=== PATIENT | male | born 1940 | race African-American/Black ===

== ENCOUNTER 2021-09-18 16:32 | Emergency (ER) | payer OTHER ==
[~2021-09-18] VITALS: Ht 170.2 cm; Wt 83.4 kg
--- NOTE | ~2021-09-18 | EMS ---
[address] [address] EMS Patient Care Report Name: JOSE WIGGINS Room #: [facility]#: [id number] Admission: 09/18/21 Attend Phys: Discharge: Date of : 44 Report #: [id number] THIS REPORT FOR: //name// Report Transmitted: 09/18/2021 16:15 EMS Care Summary [place], [place]/[facility] Incident [id number] @ 09/18/2021 15:57 Incident Location [address] [place] [address] Patient JOSE WIGGINS Male, 81 Years 1940 Patient Address [address] [place] [id number] Patient History Dementia,Kidney/Renal Failure,Stroke/CVA, Patient Allergies No known allergies, Patient Medications Lisinopril, ASA, Tramadol, Gabapentin, Chief Complaint hypotension Disposition Transported No Lights/[place] Dispatch Reason Unconscious/Fainting Transported To [facility] Narrative Arrived to find pt in wheelchair in common area. NH staff stated pt is normally alert but does have dementia. Pt is lethargic which started 30 minutes ago. Pt is hypotensive and had a low SPo2 so NH staff placed him on a NC. Pt states his butt hurts but has no other complaints. Pt does appear lethargic. Pt lifted onto cot and placed in trandelenburg position. Pt secured to cot with cot [address] [address] EMS Patient Care Report Name: JOSE WIGGINS Room #: [facility]#: [id number] Admission: 09/18/21 Attend Phys: Discharge: Date of : 44 Report #: [id number] straps and placed on monitor. Staff stated they did not administer him his pain medication due to his lethargy. Pt placed in back of unit and placed in surgical mask. Pt Administered fluid bolus to help with his hypotension. Pt transported without incident. Care to RN, rm 7. Initial Vitals @PTABP: 73/53, @16:13P: 123,BP: 75/48,SpO2: 96, @16:25P: 90,BP: 90/47,CO: 1,SpO2: 97, @16:22P: 86,BP: 78/46,CO: 2,SpO2: 98, @16:10P: 82,SpO2: 100, @16:10P: 102,R: 16,BP: 103/60,Pain: 0/10,GCS: 14,Glucose: 103,SpO2: 100,Revised Trauma: 12, Assessments @16:07MENTAL:Confused,SKIN:HEENT:Eyes: Left Pupil: 3-mm,Eyes: Right Pupil: 3-mm,Head/Face: No Abnormalities,Neck/Airway: No Abnormalities,LUNG SOUNDS:General: No Abnormalities,Left Upper: No Abnormalities,Right Upper: No Abnormalities,Left Lower: No Abnormalities,Right Lower: No Abnormalities,ABDOMEN:General: No Abnormalities,Left Upper: No Abnormalities,Right Upper: No Abnormalities,Left Lower: No Abnormalities,Right Lower: No Abnormalities,PELVIS//GI:No Abnormalities,EXTREMITIES:Left Arm: Weakness,Right Arm: No Abnormalities,Left Leg: No Abnormalities,Right Leg: No Abnormalities,PULSE:NEURO:No Abnormalities, Impression Hypotension Procedures @16:07 ALS Assessment Response: UnchangedSucceeded @16:18 IV Therapy - Saline Lock 10cc (20 ga) Site: Antecubital-Left Response: UnchangedSucceeded @PTAOxygen FlowRate: 4 Device: Nasal Cannula (NC) Succeeded @16:15 IV Therapy - Saline Lock 0cc (20 ga) Site: Antecubital-Left Response: UnchangedFailed @16:20 IV Bolus - Normal Saline (.9% NaCl) 500cc (20 ga) Site: Antecubital-Left Response: ImprovedSucceeded @16:10 3-Lead ECG Response: UnchangedSucceeded Timeline [employer],Oxygen FlowRate: 4 Device: Nasal Cannula (NC) Succeeded, [employer],BP: 73/53 M,PULSE: ,RR: R,SPO2: Ox,ETCO2: ,BG: ,PAIN: ,GCS: , 15:56,Call Received 15:56,Dispatch Notified 15:57,Dispatched [facility] [address] [place] [address] EMS Patient Care Report Name: JOSE WIGGINS Room #: [facility] Lee#: [id number] Admission: 09/18/21 Attend Phys: Discharge: Date of : 44 Report #: [id number] 15:58,En Route 16:03,On Scene 16:06,At Patient 16:07,ALS Assessment,Response: UnchangedSucceeded, 16:10,3-Lead ECG,Response: UnchangedSucceeded, 16:10,BP: 103/60 M,PULSE: 102,RR: 16 R,SPO2: 100 Ox,ETCO2: ,B,PAIN: 0,GCS: 14, 16:10,BP: / M,PULSE: 82,RR: R,SPO2: 100 Ox,ETCO2: ,BG: ,PAIN: ,GCS: , 16:13,BP: 75/48 M,PULSE: 123,RR: R,SPO2: 96 Ox,ETCO2: ,BG: ,PAIN: ,GCS: , 16:15,IV Therapy - Saline Lock 0cc 20 ga Site: Antecubital-Left,Response: UnchangedFailed, 16:18,IV Therapy - Saline Lock 10cc 20 ga Site: Antecubital-Left,Response: UnchangedSucceeded, 16:20,IV Bolus - Normal Saline (.9% NaCl) 500cc 20 ga Site: Antecubital-Left,Response: ImprovedSucceeded, 16:22,BP: 78/46 M,PULSE: 86,RR: R,SPO2: 98 Ox,ETCO2: ,BG: ,PAIN: ,GCS: , 16:22,Depart Scene 16:25,BP: 90/47 M,PULSE: 90,RR: R,SPO2: 97 Ox,ETCO2: ,BG: ,PAIN: ,GCS: , 16:30,At Destination 16:54,Call Closed Disclaimer v1.1 Copyright 2020 [employer] This EMS Care Summary contains data elements from the applicable legal record (which may be displayed differently). It is designed to provide pertinent information for the following purposes: continuity of care, clinical quality, and state data reporting. The complete legal record is available to ED staff and administrators of the receiving hospital in [employer] Patient Tracker. All data is provided "as is."
[~2021-09-18 16:32] MED LIST: ASPIR 8181 MG PO; ATIVAN0.5 MG PO; GABAPENTIN 100100 MG PO; LISINOPRIL10 MG PO; PRILOSEC20 MG; REMERON15 MG PO; TERAZOSIN HCL10 MG; TRAMADOL 50 MG50 MG PO; TRAZODONE HCL50 MG PO; ZOCOR 10 MG TAB10 MG PO
[2021-09-18 16:58] LABS: ABSOLUTE NEUTROPHILS 4.2 thou/uL (1.4-8.2); BASOPHILS 0.6 % (0.0-2.0); EOSINOPHILS 1.9 % (0.0-3.0); HEMATOCRIT 40.8 % (42.0-52.0); HEMOGLOBIN 12.9 gm/dL (14.0-18.0); LYMPHOCYTES 19.1 % (24.0-44.0); MCH 28.3 pg (26.0-34.0); MCHC 31.7 g/dL (28.0-37.0); MCV 89.4 fL (80.0-100.0); MONOCYTES 10.9 % (1.0-8.0); PLATELET COUNT 250 thou/uL (150-400); POLYS 67.5 % (36.0-66.0); RBC 4.57 mil/uL (4.50-6.00); RDW 16.6 % (10.5-14.5); WBC 6.3 thou/uL (4.0-11.0)
[2021-09-18 17:17] LABS: CALCIUM 8.6 mg/dL (8.5-10.1); CREATININE 1.8 mg/dL (0.7-1.3); POTASSIUM 4.3 mmol/L (3.5-5.1)
[2021-09-18 17:27] LABS: ALBUMIN 2.7 g/dL (3.4-5.0); TOTAL BILIRUBIN 0.2 mg/dL (0.2-1.0); TOTAL PROTEIN 6.9 g/dL (6.4-8.2)
[2021-09-18 19:01] LABS: URINE BILIRUBIN NEGATIVE (Negative); URINE BLOOD NEGATIVE (Negative); URINE CLARITY CLEAR; URINE COLOR YELLOW; URINE GLUCOSE-RANDOM* NEGATIVE (Negative); URINE KETONES NEGATIVE (Negative); URINE LEUKOCYTES-REFLEX NEGATIVE (Negative); URINE NITRITE-REFLEX NEGATIVE (Negative); URINE PROTEIN (DIPSTICK) NEGATIVE (Negative); URINE SPECIFIC GRAVITY 1.015 (1.005-1.035)
[2021-09-18 19:19] LABS: AMP/METHAMP Negative (Negative); BARBITURATES Negative (Negative); BENZODIAZEPINES Negative (Negative); COCAINE Negative (Negative); METHADONE Negative (Negative); OPIATES Negative (Negative); PCP Negative (Negative)
[2021-09-18 22:31] VITALS: BP 108/72
--- NOTE | 2021-09-19 07:08 | EKG ---
[address] [address] ELECTROCARDIOGRAM REPORT Name: JOSE WIGGINS Room #: [facility]#: [id number] Admission: 09/18/21 Attend Phys: Discharge: 09/18/21 Date of : 44 Report #: [id number] [facility] ED Test Date: 2021-09-18 Test Time: 18:46:41 Pat Name: JOSE WIGGINS Department: Room: Gender: [employer]: mayela : 1940 Requested By: Diogo Cifuentes Order Number: [id number] MD: Elpidio Shirley Measurements Intervals [place] Rate: 84 P: 73 MD: 171 QRS: -6 QRSD: 88 T: 25 QT: 385 QTc: 456 Interpretive Statements Sinus rhythm No previous ECG available for comparison Electronically Signed On 09-19-2021 7:07:49 CDT by Elpidio Shirley [email or web address] <ELECTRONICALLY SIGNED> By: Elpidio Shirley MD, [facility] 09/19/21 0707 1846 1846 Elpidio Shirley MD, FACC /EPI
== END 2021-09-18 22:32 | disposition home or self-care (01) ==
LOC: ER 16:32
PROVIDERS: Nurse Practitioner
DX: R53.1 Weakness (principal); F03.90 Unspecified dementia, unspecified severity, without behavioral disturbance, psychotic disturbance, mood disturbance, and anxiety; I10 Essential (primary) hypertension; K21.9 Gastro-esophageal reflux disease without esophagitis; F32.9 Major depressive disorder, single episode, unspecified; E78.5 Hyperlipidemia, unspecified; Z79.82 Long term (current) use of aspirin; Z79.899 Other long term (current) drug therapy

== ENCOUNTER 2022-01-27 09:19 | Inpatient (IN) | payer OTHER ==
[~2022-01-27] VITALS: Ht 172.7 cm; Wt 68.0 kg
--- NOTE | ~2022-01-27 | O ---
[facility] [place] [address] OPERATIVE REPORT Name: JOSE WIGGINS Room #: 448-P ADM IN M.R.#: [id number] Admission: 01/27/22 Attend Phys: Rudy Angel MD Discharge: Date of : 44 Report #: [id number] THIS REPORT FOR: cc: Cuate Gonzalez MD, Srinath MD Patterson,Harris Ulloa MD ~ DATE OF SERVICE: 01/28/2022 PREOPERATIVE DIAGNOSIS: Incarcerated right inguinal hernia. POSTOPERATIVE DIAGNOSIS: Incarcerated right inguinal hernia. OPERATION: Repair of incarcerated right inguinal hernia with mesh. SURGEON: Harris Cárdenas. ANESTHESIA: General. ESTIMATED BLOOD LOSS: Minimal. SPECIMENS: None. DESCRIPTION OF PROCEDURE: After informed consent was obtained, out of medical necessity, the patient was brought to the operating room. SCDs were placed and working, preoperative antibiotics were administered and general anesthesia was induced. The abdomen was prepped and draped in the usual sterile fashion. An 8 cm incision was made and 1 cm above the right inguinal external ring. Cautery dissection was made down through the subcutaneous fat down to the aponeurosis of the external oblique, which was incised along the length of its fibers. Self-retaining retractor was placed. Cord structures were identified and protected. He had a direct inguinal hernia. This was all carefully dissected around. This was the corresponding bladder seen on CT. This was placed back into its anatomic position as much as possible. I then performed a tension-free mesh repair. Prolene mesh was brought into the field. It was cut to fit the area. It was then sutured to the shelving edge of the inguinal ligament with interrupted 2-0 Prolene sutures. Interrupted 2-0 Prolene sutures were also used to suture it to the conjoined area. The tails were tucked around the spermatic cord. It was then placed back behind the aponeurosis. The aponeurosis was reapproximated with running 2-0 Vicryl suture. It is important to note that the suture of the mesh was started first anchoring it to the pubic tubercle. The Willis's fascia was reapproximated with interrupted 3-0 Vicryl. Skin was closed with 4-0 Monocryl. Incision was dressed with Dermabond. [address] [address] OPERATIVE REPORT Name: JOSE WIGGINS Room #: 448-P [facility] IN .R.#: [id number] Admission: 01/27/22 Attend Phys: Rudy Angel MD Discharge: Date of : 44 Report #: [id number] COMPLICATIONS: None. DISPOSITION: The patient was taken to the recovery in satisfactory condition. By: 1138 [id number] Harris Cárdenas MD /nt
[2022-01-27 09:21] VITALS: BP 134/77
[2022-01-27] MEDS ORDERED: CLARITIN10 M3 PO (09:29)
[2022-01-27] MEDS ORDERED: VITAMIN D310 MC3 PO (09:29)
[2022-01-27] MEDS ORDERED: GEMTESA75 MG PO (09:30)
[2022-01-27] MEDS ORDERED: FLOMAX0.4 MG PO (09:30)
[2022-01-27] MEDS ORDERED: ESCITALOPRA5 MG/5 ML PO (09:30)
[2022-01-27] MEDS ORDERED: PROSCAR 5MG TABL5 M1 PO (09:30)
[2022-01-27] MEDS ORDERED: NAMENDA XR1 EACH PO (09:31)
[2022-01-27] MEDS ORDERED: MELATONIN5 MG SUBLING (09:31)
[2022-01-27 09:52] LABS: ABSOLUTE NEUTROPHILS 3.7 thou/uL (1.4-8.2); BASOPHILS 0.4 % (0.0-2.0); EOSINOPHILS 2.2 % (0.0-3.0); HEMATOCRIT 36.7 % (42.0-52.0); HEMOGLOBIN 12.3 gm/dL (14.0-18.0); LYMPHOCYTES 16.7 % (24.0-44.0); MCH 29.8 pg (26.0-34.0); MCHC 33.6 g/dL (28.0-37.0); MCV 88.8 fL (80.0-100.0); PLATELET COUNT 235 thou/uL (150-400); POLYS 65.7 % (36.0-66.0); RBC 4.13 mil/uL (4.50-6.00); RDW 15.6 % (10.5-14.5); WBC 5.7 thou/uL (4.0-11.0)
[2022-01-27 10:00] LABS: URINE BLOOD 3+ (Negative); URINE COLOR YELLOW; URINE GLUCOSE-RANDOM* NEGATIVE (Negative); URINE KETONES NEGATIVE (Negative); URINE NITRITE-REFLEX NEGATIVE (Negative); URINE PROTEIN (DIPSTICK) 3+ (Negative); URINE SPECIFIC GRAVITY >= 1.030 (1.005-1.035)
[2022-01-27 10:01] LABS: CALCIUM 9.1 mg/dL (8.5-10.1); POTASSIUM 3.5 mmol/L (3.5-5.1)
[2022-01-27 10:07] LABS: ALBUMIN 2.5 g/dL (3.4-5.0); TOTAL BILIRUBIN 0.2 mg/dL (0.2-1.0); TOTAL PROTEIN 7.2 g/dL (6.4-8.2)
[2022-01-27 10:09] LABS: URINE CLARITY CLOUDY; URINE LEUKOCYTES-REFLEX 1+ (Negative)
[2022-01-27 10:10] LABS: ICTOTEST (BILI CONFIRMATORY) Negative (Negative); URINE BILIRUBIN NEGATIVE (Negative)
[2022-01-27 10:13] LABS: CASTS None Seen /LPF (None Seen); MUCUS 4-6 Moderate strn/LPF (None Seen); SQUAMOUS 4-10 Moderate /LPF (0-3)
[2022-01-27 10:14] LABS: BACTERIA-REFLEX None Seen /HPF (None Seen); CRYSTALS None Seen /LPF (None Seen); URINE RBC >20 Many /HPF (NONE SEEN)
[2022-01-27 11:45] VITALS: BP 120/66
[2022-01-27 12:38] VITALS: BP 112/49
[2022-01-27 13:19] VITALS: BP 142/72
--- NOTE | 2022-01-27 14:21 | NUR ---
ARRIVED TO 4S FROM ED FOR ABD HERNIA. FROM [facility]. A/O X 2 SELF AND SITUATION, RAMA AIR, BEDBOUND, INCONT B/B, LARGE BM, FLACCID LEFT ARM AND LEG PAST CVA, LEFT FOREARM PIV, ABD PAIN, NPO AFTER MIDNIGHT FOR SURGERY TOMORROW.
[2022-01-27 20:44] VITALS: BP 162/87
[2022-01-28] VITALS (8 sets, daily range): BP systolic 110–171; BP diastolic 60–91
--- NOTE | 2022-01-28 05:24 | NUR ---
Pt. rested quietly at intervals during the night when checked on during frequent rounds. He was moaning outloud and c/o testicle pain. Iv pain meds given (see emar) with some relief noted. Bed alarm is on.
[2022-01-28 06:48] LABS: HEMATOCRIT 33.1 % (42.0-52.0); HEMOGLOBIN 11.1 gm/dL (14.0-18.0); MCH 29.9 pg (26.0-34.0); MCHC 33.4 g/dL (28.0-37.0); MCV 89.6 fL (80.0-100.0); RBC 3.7 mil/uL (4.50-6.00); RDW 15.6 % (10.5-14.5); WBC 4.2 thou/uL (4.0-11.0)
[2022-01-28 07:08] LABS: CALCIUM 8.6 mg/dL (8.5-10.1); POTASSIUM 3.7 mmol/L (3.5-5.1)
--- NOTE | 2022-01-28 09:57 | EKG ---
[address] [place] [address] ELECTROCARDIOGRAM REPORT Name: JOSE WIGGINS Room #: 448- ADM IN M.R.#: [id number] Admission: 01/27/22 Attend Phys: Rudy Angel MD Discharge: Date of : 44 Report #: [id number] [facility] ED Test Date: 2022-01-27 Test Time: 09:25:40 Pat Name: JOSE WIGGINS Department: Room: [facility] Gender: M Shot Man: BARRETT : 1940 Requested By: Edward Mejia Order Number: [id number] MD: Frank Fowler Measurements Intervals [place] Rate: 99 P: 48 ID: 164 QRS: -13 QRSD: 93 T: 31 QT: 367 QTc: 471 Interpretive Statements Sinus rhythm Nonspecific ST segment abnormalities Compared to ECG 09/18/2021 18:46:41 No significant change Electronically Signed On 01-28-2022 9:56:46 [employer] ASSIST[employer] by Frank Fowler [email or web address] <ELECTRONICALLY SIGNED> By: Frank Fowler MD 01/28/22 0956 09 Frank Fowler MD /[place]
--- NOTE | 2022-01-28 18:51 | NUR ---
Patient is alert and oriented to person, pain med given prn, had surgery today. Call light within reach, hourly round, will continous monitoring.
[2022-01-29 01:47] VITALS: BP 105/58
[2022-01-29 04:55] VITALS: BP 104/57
--- NOTE | 2022-01-29 06:50 | NUR ---
ALERT AND AWAKE. MILDLY APHESIC. TURN Q 2 HOURS. INCONTINENT OF URINE NOTED. RIGHT GROIN PAIN TREATED WITH PRN PO PAIN MED. HARD TO SWALLOW PAIN PILLS. ADMINSTERED CRUSHED WITH PUDDING. UNABLE TO GET URINE SAMPLE. PT REFUSED CONDUM CATH AND URINAL.
[2022-01-29 09:11] VITALS: BP 118/64
--- NOTE | 2022-01-29 13:22 | NUR ---
ASSUMED CARE OVER PATIENT THIS MORNING. SINCE HAVING PATIENT ASSESSMENT HAS BEEN UNREMARKABLE WITH NO COMPLAINTS BESIDES MILD PAIN THAT IS CONTROLLED BY PRN PO MEDICATIONS. PATIENT IS TO BE DISCHARGED BACK TO [place] THAT 1330. PATIENT THIS CLEANED UP WITH NEW BRIEF AND GONE ON, TO THE CLOTHES HE CAME IN ARE SOILED. NON SLIP SOCKS IN PLACE AND IV D/C FRORM RLFA NO ISSUES WITH REMOVAL. PATIENT BELONGINGS PLACED IN CLEAR PATIENT BACK AND WILL BE TRANPORTED WITH PATIENT. REPORT CALLED TO NURSE ON DUTY.
--- NOTE | 2022-01-29 17:01 | NUR ---
Patient admitted from [facility] for hernia. plan dc today. Sp with [facility] Jon PARKER. To alert of discharge today. Faxed orders, chart copied, ye turner for 0297. Notified patient and brother at bedside. Brother reports he will alert other family members. No further needs
== END 2022-01-29 14:06 | DRG 350 ==
LOC: ER 09:19 → 4S 13:02 → EROBS 13:02 → 4S 13:03
PROVIDERS: Emergency Medicine; ADMIT Hospitalist; ATTEND Hospitalist
PROC: 0YU50JZ Supplement Right Inguinal Region with Synthetic Substitute, Open Approach (ICD-10-PCS; principal; 2022-01-28)
DX: K40.30 Unilateral inguinal hernia, with obstruction, without gangrene, not specified as recurrent (principal); E43 Unspecified severe protein-calorie malnutrition; I69.354 Hemiplegia and hemiparesis following cerebral infarction affecting left non-dominant side; N30.90 Cystitis, unspecified without hematuria; Z20.822 Contact with and (suspected) exposure to COVID-19; K21.9 Gastro-esophageal reflux disease without esophagitis; I10 Essential (primary) hypertension; Z66 Do not resuscitate; F03.90 Unspecified dementia, unspecified severity, without behavioral disturbance, psychotic disturbance, mood disturbance, and anxiety; I69.391 Dysphagia following cerebral infarction; F32.A Depression, unspecified; E78.5 Hyperlipidemia, unspecified
CPT/HCPCS: 10100; 10195; 50010; 50101; 50386; 50403; 56524; 56525; 56526; 57108; 58637; 62110; 62900; 70005